=== PATIENT | female | born 1970 | race Two or more races ===

== ENCOUNTER 2019-02-12 00:43 | Inpatient (IN) | payer OTHER ==
[~2019-02-12] VITALS: Ht 165.1 cm; Wt 78.1 kg
--- OUTSIDE RECORDS SUMMARY | 2019-02-12 00:45 | XMS REPORT ---
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 Allergies, Adverse Reactions, Alerts Allergy Name Allergy Type Status Severity Reaction(s) Onset Date Inactive Date Treating Clinician Comments No Known Allergies DA Active U 2019-01-13 00:00:00 Medications This patient has no known medications. Results Test Description Test Time Test Comments Text Results Atomic Results Result Comments - XR KNEE 4 + V RT 2019-01-13 23:32:00 FAX: Nadiya Alonso NP [place]: St: REG Name: MARYJO DONAHUE [facility] : 1970 Age/S: 48/F [address] [facility] Unit #: [id number] Loc: [place] [address] Phys: Nadiya Alonso NP Acct: [id number] Dis Date: Status: REG ER PHONE #: [phone] Exam Date: 01/13/2019 2257 FAX #: [phone] Reason: fall, pain EXAMS: CPT CODE: [id number] XR KNEE 4 + V RT [id number] DICTATION LOCATION: H48 HISTORY: Female, 48 years of age with fall, pain EXAM: RIGHT KNEE, 3 VIEWS COMPARISON: None FINDINGS: No significant soft tissue swelling or joint effusion. Mild degenerative change seen in the patellofemoral joint and medial compartment. No acute fracture, dislocation, osteolytic or osteoblastic lesion. IMPRESSION: Mild degenerative change. No acute bony abnormalities. at 2332 Reported and signed by: Gem Chung MD CC: Nadiya Alonso NP Technologist: RT MARCY(R) Trnscrd Date/Time/By: 01/13/2019 (0754) : By: JayashreeCLW Orig Print D/T: S: 01/13/2019 (5385) PAGE 1 Signed Report - XR HIP W/PEL UNI 2+V RT 2019-01-13 23:31:00 FAX: Nadiya Alonso NP [place]: St: REG Name: MARYJO DONAHUE [facility] : 1970 Age/S: 48/F [address] [facility] Unit #: [id number] Loc: [place] [address] Phys: Nadiya Alonso NP Acct: [id number] Dis Date: Status: REG ER PHONE #: [phone] Exam Date: 01/13/2019 2250 FAX #: [phone] Reason: fall, pain EXAMS: CPT CODE: [id number] XR HIP W/PEL UNI 2+[place] [address] DICTATION LOCATION: H48 HISTORY: Female, 48 years of age with fall, pain EXAM: RIGHT HIP, 3 VIEWS COMPARISON: None FINDINGS: AP pelvis and 2 views of the right hip are provided. There is permeative lucency and mild adjacent soft tissue calcification in the greater trochanter of right proximal femur. No obvious fracture line or dislocation. No other osteolytic or osteoblastic lesions. Mild degenerative disease seen in both hips. IMPRESSION: 1. Permeative lucency and adjacent faint soft tissue calcification in the greater trochanter of right proximal femur. Findings suspicious for primary or metastatic neoplasm or osteomyelitis. Please correlate with clinical history. Consider further assessment with CT scan or MRI. 2. No acute fracture or dislocation. at 2331 Reported and signed by: Gem Chung MD CC: Nadiya Alonso NP Technologist: RT MARCY(R) Trnscrd Date/Time/By: 01/13/2019 (9525) : By: Torin Orig Print D/T: S: 01/13/2019 (1513) PAGE 1 Signed Report
[2019-02-12 01:39] LABS: BASOPHILS # (AUTO) 0.1 (0.0-0.1); BASOPHILS % 0.5 % (0.0-1.0); EOSINOPHILS # (AUTO) 0.1 (0.0-0.4); EOSINOPHILS % 1.2 % (0.0-6.0); HEMATOCRIT 38.4 % (34.2-44.1); HEMOGLOBIN 12.2 g/dL (12.0-16.0); LYMPHOCYTES # (AUTO) 2.6 (1.0-3.2); LYMPHOCYTES % 27.7 % (18.0-39.1); MEAN CORPUSCULAR HEMOGLOBIN 23.7 pg (28-32); MEAN CORPUSCULAR HGB CONC 31.8 g/dL (31-35); MEAN CORPUSCULAR VOLUME 74.7 fL (81-99); MONOCYTES # (AUTO) 0.8 (0.2-0.8); MONOCYTES % 8.4 % (4.4-11.3); NEUTROPHILS # (AUTO) 5.8 (2.1-6.9); NEUTROPHILS % 61.7 % (38.7-80.0); PLATELET COUNT 315 x10e3/uL (140-360); RED BLOOD COUNT 5.14 x10e6/uL (3.6-5.1); RED CELL DISTRIBUTION WIDTH 15.1 % (11.7-14.4)
[2019-02-12 01:43] LABS: PROTHROMBIN TIME 13.7 seconds (11.9-14.5)
[2019-02-12 01:44] LABS: PARTIAL THROMBOPLASTIN TIME 26.2 seconds (23.8-35.5)
[2019-02-12 01:52] LABS: ALANINE AMINOTRANSFERASE 11 IU/L (0-55); ALBUMIN 3.5 g/dL (3.5-5.0); ALBUMIN/GLOBULIN RATIO 0.9 (0.8-2.0); ALKALINE PHOSPHATASE 54 IU/L (40-150); BLOOD UREA NITROGEN 19 mg/dL (7-26); BUN/CREATININE RATIO 28 (6-25); CALCIUM 9.1 mg/dL (8.4-10.2); CARBON DIOXIDE 20 mmol/L (22-29); CREATININE, SERUM 0.68 mg/dL (0.57-1.11); EST GLOMERULAR FILTRATION RATE > 60 ML/MIN (60-); GLUCOSE 114 mg/dL (74-118)
[2019-02-12] MEDS ORDERED: MORPHINE SULFATE INJ 4 MG/ML INJ 1ML ONE (01:52)
[2019-02-12] MEDS ORDERED: MORPHINE SULFATE 2 MG/ML SYR 1ML ONE (01:53)
[2019-02-12] MEDS ORDERED: ONDANSETRON HCL INJ 2MG/ML 2ML 2 MG/ML VIAL ONE (01:53)
[2019-02-12] MEDS: ONDANSETRON HCL INJ 2MG/ML 2ML 2 MG/ML VIAL IV PRN ×5 (02:00→21:40)
[2019-02-12 02:06] LABS: CHLORIDE 108 mmol/L (98-107); POTASSIUM 4.1 mmol/L (3.5-5.1); SODIUM 139 mmol/L (136-145)
[2019-02-12 02:09] LABS: ANION GAP 15.1 mmol/L (8-16)
--- NOTE | 2019-02-12 03:31 | Diagnostic Imaging Report ---
CT Bony Pelvis Without Contrast, With Multiplanar Reconstructions. CPT CODE: [id number]. INDICATIONS: Fall, right hip pain TECHNIQUE: Contiguous 2.5 mm thickness axial images were obtained in helical fashion through the bony pelvis. From these, coronal and sagittal reconstructions were generated. Rationale for reconstructions: To better assess alignment, and assess for subtle findings of possible fracture. RADIATION DOSE: Total DLP: 381.6 mGy*cm Estimated effective dose: (DLP x 0.015 x size factor) mSv CTDIvol has been reviewed. It is below the limits set by the Radiation Protocol Committee (RPC). COMPARISON: None. Findings: Fracture proximal diaphysis with involvement of the greater trochanter. The femoral neck is intact. There is a lucency in the greater trochanter measuring approximately 3.5 x 3.8 x 4.2 cm. The cortical margins surrounding this region are somewhat irregular suggestive of an underlying mass. The right femoral head remains articulated with the acetabulum. There is a tiny bone island in the femoral head. The left hip is intact and normal in morphology. No lytic or blastic lesions. No diastases of the pubic symphysis or sacroiliac joints. The pubic rami are intact. There are mild degenerative changes of the lower lumbar spine. Visualized bowel and appendix are normal. The uterus is present and normal in morphology. No adnexal mass. No evidence of pelvic or inguinal lymphadenopathy. No evidence of intramuscular hematoma or subcutaneous inflammation. IMPRESSION: Fracture of the proximal right femur with lucent lesion in the greater trochanter concerning for pathologic fracture. The remainder of the pelvis and left hip are normal. Thank you for this referral. Signed by: Dr. Ernst Irby MD on 02/12/2019 3:28 AM
[2019-02-12] MEDS ORDERED: ATORVASTATIN CA20 MG PO (03:40)
[2019-02-12] MEDS ORDERED: MORPHINE SULFATE 5 MG/ML VIAL IV ONE (03:45)
--- NOTE | 2019-02-12 04:28 | Diagnostic Imaging Report ---
Hip complete Indication: ^fall Technique: AP and crosstable images of right hip obtained. Comparison: Pelvis CT 0210 hours Findings: Fracture of the proximal femoral diaphysis is redemonstrated extending into the intertrochanteric region. There is mild overlap and medial angulation of the distal fracture fragment. Lateral image demonstrates anterior displacement and possibly one shaft width. The adjacent pubic rami are intact. The femoral head is intact and remains articulated with the acetabulum. IMPRESSION: Fracture of the proximal right femur as described above. Signed by: Dr. Ernst Irby MD on 02/12/2019 4:24 AM
[2019-02-12] MEDS ORDERED: HYDROMORPHONE 1MG/1ML INJ IV STA (04:57)
[2019-02-12] MEDS ORDERED: HYDROMORPHONE 1MG/1ML INJ IV PRN (05:00)
[2019-02-12] MEDS ORDERED: HYDROMORPHONE 1MG/1ML INJ ONE (05:03)
[2019-02-12] MEDS: MORPHINE SULFATE 2 MG/ML SYR 1ML IV PRN ×2 (07:47→14:12)
[2019-02-12] MEDS ORDERED: GADOBENATE DIMEGLUMINE 0 ML IV ONE (11:07)
[2019-02-12] MEDS ORDERED: GADOBENATE DIMEGLUMINE 1 ML IV ONE (11:08)
--- NOTE | 2019-02-12 14:12 | Diagnostic Imaging Report ---
EXAM: CT Chest, Abdomen and Pelvis WITH intravenous contrast INDICATION: Concern for metastatic malignancy COMPARISON: None. TECHNIQUE: The chest, abdomen and pelvis were scanned utilizing a multidetector helical scanner from the thoracic inlet to the pubic symphysis after administration of IV contrast. Coronal and sagittal reformations were obtained. Routine protocol was performed. Scan was performed during portal venous phase. IV CONTRAST: 100mL of Isovue 370 ORAL CONTRAST: None RADIATION DOSE: Total DLP: 1098.2 mGy*cm Dose modulation, iterative reconstruction, and/or weight based adjustment of the mA/kV was utilized to reduce the radiation dose to as low as reasonably achievable. FINDINGS: LINES/ TUBES: None. LUNGS AND AIRWAYS: The central airways are patent. No focal consolidation. Bilateral lower lobe dependent subsegmental atelectasis. No suspicious pulmonary nodules. PLEURA: No pleural effusion. No pneumothorax. HEART AND MEDIASTINUM: The thyroid gland is normal. Multiple enhancing right and left supraclavicular lymph nodes, for example a 14 x 14 mm node on the right (series 2 image 6. Extensive right axillary and subpectoral lymphadenopathy, the largest of which measures 4.1 x 2.8 cm (series 2 image 19) no mediastinal lymphadenopathy. The heart is not enlarged. No pericardial effusion. Scattered atherosclerotic calcifications of the coronary arteries. This study is not tailored for evaluation for pulmonary embolism, however there is no large central pulmonary embolus. HEPATOBILIARY: Diffuse hepatic steatosis. No focal liver lesions. No biliary ductal dilation. Normal gallbladder. SPLEEN: No splenomegaly. PANCREAS: No focal masses or ductal dilatation. ADRENALS: No adrenal nodules. KIDNEYS/URETERS: No hydronephrosis, stones, or solid mass lesions. PELVIC ORGANS/BLADDER: Unremarkable. PERITONEUM / RETROPERITONEUM: No free air or fluid. VESSELS: Unremarkable. GI TRACT: Descending and sigmoid colonic diverticulosis. No CT evidence of diverticulitis. No abnormal bowel wall thickening. No bowel obstruction. Normal appendix. BONES AND SOFT TISSUES: Extensive soft tissue masses of the right breast, the most dominant component measuring approximately 4.9 x 3.5 cm in the lateral right breast. There is associated satellite masses throughout the breast and extensive overlying skin thickening. Approximately 6.7 x 2.6 cm destructive lytic lesion involving the left ninth lateral rib. Acute pathologic right proximal femur fracture as previously described on right hip radiograph and pelvic CT. The underlying lytic bone lesion measures proximally 4.8 x 3.6 cm. IMPRESSION: Extensive soft tissue masses involving the right breast with the most dominant component measuring 4.9 x 3.5 cm in the lateral right breast. Associated satellite nodules, overlying skin thickening, extensive right axillary and subpectoral lymphadenopathy and right supraclavicular lymphadenopathy. Destructive metastasis involving the left ninth lateral rib and lytic metastasis of the right proximal femur associated with the known acute pathologic fracture. Findings are consistent with widely metastatic breast cancer. Diffuse hepatic steatosis. RECOMMENDATIONS: Breast imaging workup with baseline mammographic and sonographic evaluation. Signed by: Goldie Freeman MD on 02/12/2019 2:08 PM
[2019-02-12] MEDS ORDERED: ACETAMINOPHEN 325 MG TAB PO PRN (15:00)
[2019-02-12] MEDS ORDERED: HYDROMORPHONE 2MG/ML 2 MG/ML ML IV ONE (15:15)
--- NOTE | 2019-02-12 16:23 | Consultation ---
DATE OF CONSULTATION: Consultation to Trey Bullard M.D. HISTORY OF PRESENT ILLNESS: Ms. Bowens is a 48-year-old [place] female from [facility] came with right hip fracture, subsequently referred to me for further evaluation and treatment. The patient is a very poor historian. The patient claims that she had pain in the right lower extremity. Subsequently, a CAT scan has shown a 3.5 x 3.8 x 4.2 cm lucency in the greater trochanter. The patient also has a fracture involving the proximal diaphysis with involvement of the greater trochanter, subsequently referred to me for further evaluation and treatment. SOCIAL HISTORY: Noncontributory. FAMILY HISTORY: Noncontributory. ALLERGIES: REPORTED NONE. MEDICATIONS: At this time: 1. Hydromorphone. 2. Morphine. 3. Ondansetron. REVIEW OF SYSTEMS: HEENT: Normal. CARDIAC: Normal. RESPIRATORY: Normal. GI: Normal. : Normal. MUSCULOSKELETAL: fracture of the right femur. PHYSICAL EXAMINATION: GENERAL: A rather obese female, bed confined. No palpable adenopathy. HEART: Within normal limits. LUNGS: Clear. Right breast mass about 10 cm. The patient has inversion of the right breast nipple. Left breast does not reveal any masses. ABDOMEN: Obese. RECTAL/VAGINAL: Could not be done. CENTRAL NERVOUS SYSTEM: Could not be done. EXTREMITIES: The patient does have excruciating pain of the right lower extremity. LABORATORY DATA: CBC shows hemoglobin of 12.2, hematocrit 38.4, white count of 9340, platelets of 315,000. Chemistry shows a sodium of 139, potassium 4.1, chloride is 108, CO2 of 20, BUN 19, creatinine 0.68, glucose 114, calcium 9.1, bilirubin 0.4, SGOT 24, SGPT 11, alkaline phosphatase 54, total protein 7.2, albumin 3.5, globulin is 3.7. Chest x-ray has not been done. IMPRESSION: 1. Right femur metastases. 2. Right breast cancer. 3. Morbid obesity. PLAN, COMMENTS, AND SUGGESTIONS: Suggest a right breast biopsy. Cancel the biopsy of the right femur. CT of the chest. The patient will also have an MRI of the brain, total body bone scan, CEA, and orthopedic surgery. This is an incurable far advanced cancer. This was discussed at length with the patient and the daughter. The patient was also suggested a second opinion as she kept telling am I going to , am I going to . Franck Chen MD MAQ/MODL /[id number] cc: Trey Bullard MD
[2019-02-12] MEDS ORDERED: IOPAMIDOL 370 MG/ML 200 ML INFUS..BTL INJ ONE (16:50)
[2019-02-12] MEDS ORDERED: SODIUM CHLORIDE 0.9% 50ML 50 ML ONE (16:50)
--- NOTE | 2019-02-12 19:45 | History and Physical ---
HISTORY OF PRESENT ILLNESS: The patient is a 48-year-old [place] female, past medical history is negative for any significant medical condition. The patient came because she fell at home and she was having pain on the right hip. She was found to have a right proximal femur fracture. She was found to have metastatic lesions in the pelvic bones. She was found to have also right breast cancer. Apparently, she had to be followed time under to look for any medical evaluation. The patient came to the hospital. REVIEW OF SYSTEMS: CARDIOVASCULAR: No chest pain or palpitation. RESPIRATORY: No shortness of breath. No cough. GASTROINTESTINAL: No nausea or vomiting. No diarrhea. GENITOURINARY: No urinary frequency. MUSCULOSKELETAL: Right hip pain after the fall. ALLERGIES: NOT ALLERGIC TO ANYTHING. SOCIAL HISTORY: She does not smoke. She does not drink. PAST MEDICAL HISTORY: According to her is negative for any significant medical conditions. PHYSICAL EXAMINATION: VITAL SIGNS: Temperature 98.3, heart rate 101 per minute, respiratory rate 16 per minute, blood pressure is 141/81, and oxygen 96%. LABORATORY STUDIES: On the blood work, we have a CBC; white blood count 9.34, hemoglobin 12.22, hematocrit 38.4, platelet count 315,000. On the BMP; sodium 139, potassium 4.1, chloride 108, CO2 of 20, BUN 19, creatinine 0.68, GFR of 60, glucose 114, calcium 9.1, bilirubin 0.4, AST 24, ALT 11, total alkaline phosphatase 54, total protein 7.2, albumin 3.5. test is negative on the coagulation. PT 13.7, INR 1.00, PTT 26.2. Immunology status grew IgG, IgA and I g, is pending. Imaging, we have a pelvis CT, which showed that the patient has fracture on the proximal right femur with leucine lesion in the greater trochanter consent concerning for pathological fracture. Remaining pelvis and hip are normal. Then, we have a hip x-ray, which showed fracture of the proximal right femur. Then, we have a CT of the abdomen and pelvis, which showed extensive soft tissue masses involving the right breast with the most dominant component measuring 4.9 x 3.5 cm in the lateral right breast, associated satellite nodules of allied skin thickening. Extensive right axillary and subpectoral lymphadenopathy and right supraclavicular lymphadenopathy. Destructive status involving the left 9th lateral rib lytic metastasis on the proximal femur associated with the known acute pathologic fracture. Findings are consistent with widely metastatic breast cancer and diffuse hepatic steatosis. Recommendation, breast imaging workup with mammogram and sonographic evaluation recommended. IMPRESSION: 1. Right hip fracture, which is hepatologic right hip fracture. 2. Right breast cancer with metastatic lesion. 3. Obesity. PLAN OF TREATMENT: Dr. Vizcaino has been consulted from the surgical point of view for biopsy. Dr. Chen has been consulted for the Oncology point of view because of breast cancer and then, Dr. Pires has been consulted from the Orthopedic consult point of view for the fracture. The patient will continue with Dilaudid 1 mg IV q.6 hours as needed for severe pain, morphine 4 mg IV q.4 hours as needed, Zofran 4 mg IV q.4 hours as needed for nausea and vomiting. We are going to give also Tylenol p.o. 325 mg as needed for q.4 hours as needed for pain or fever. The case has been discussed with at the bedside and Dr. Chen, Hematology also. MD CONNIE Trivedi/MIRANDA /[id number]
[2019-02-12] MEDS: MORPHINE SULFATE INJ 4 MG/ML INJ 1ML IV PRN (21:40)
--- NOTE | 2019-02-12 21:40 | NUR ---
ORTHOPEDIC CONSULTATION Patient is seen & examined with son at bedside. Patient is a 48 year old community ambulator without assistive device who presents to the ED with right hip pain and an inability to ambulate. No numbness, paresthesias or loss of dis sherice motor function. Pain localized to right hip. Denies pain in any other extremity. Patient was told weeks ago to get a right hip CT to evaluate a hip lesion however she was afraid and did not get imaging. PMdHx: Denies Allergies: NKDA Medications: None FamHx: Non-contributory SocHx: Denies Tob, EtOH, DrugsG. ROS: as per HPI AVSS AAO x 3, NAD Right Lower Leg Shortened, Flexed, Externally rotated Motor: + EHL, FHL, TA, G/S Sensation grossly intact Pulses +DP, Post tib Compartments soft Negative calf tenderness CT Chest Abdomen Pelvis IMPRESSION: Extensive soft tissue masses involving the right breast with the most dominant component measuring 4.9 x 3.5 cm in the lateral right breast. Associated satellite nodules, overlying skin thickening, extensive right axillary and subpectoral lymphadenopathy and right supraclavicular lymphadenopathy. Destructive metastasis involving the left ninth lateral rib and lytic metastasis of the right proximal femur associated with the known acute pathologic fracture. Findings are consistent with widely metastatic breast cancer. Diffuse hepatic steatosis. Assessment: 48 year old F with pathologic right intertrochanteric hip fracture Recommend Bone Scan to evaluate for potential other sites of tumor involvement Analgesics DVT Prophylaxis Bedrest Will plan on Right Hip Intramedullary Nailing once work up is completed Will require post op radiation Oncologic treatment as per Heme/Onc Discussed case with patient and son. DO MICKY [facility]
[2019-02-12 22:14] VITALS: BP 130/91
[2019-02-12 22:23] VITALS: BP 135/87
[2019-02-12 22:37] VITALS: BP 135/87
[2019-02-13] VITALS (7 sets, daily range): BP systolic 106–145; BP diastolic 66–92
[2019-02-13] MEDS: HYDROCODONE/APAP 10MG-325MG TAB PO PRN ×2 (00:56→16:57)
[2019-02-13] MEDS: MORPHINE SULFATE INJ 4 MG/ML INJ 1ML IV PRN ×2 (03:17→08:23)
[2019-02-13] MEDS: ONDANSETRON HCL INJ 2MG/ML 2ML 2 MG/ML VIAL IV PRN ×5 (03:18→23:52)
--- NOTE | 2019-02-13 07:09 | NUR ---
pt asleep resp even and unlabored at this time no distress noted, pt easily aroused to name , pt has family member at bedside, call light in reach will cont to monitor.
[2019-02-13] MEDS ORDERED: LIDOCAINE HCL 1% LOCAL INJ 20 ML VIAL ONE (12:11)
--- NOTE | 2019-02-13 13:00 | NUR ---
pt off unit.
[2019-02-13] MEDS ORDERED: MIDAZOLAM HCL 2 MG/2 ML VIAL ONE (14:38)
[2019-02-13] MEDS ORDERED: FENTANYL CITRATE/PF 100MCG/2 ML INJ ONE (14:38)
--- NOTE | 2019-02-13 14:42 | NUR ---
pt returned to floor. awake resp even and unlabored, no distress noted.
[2019-02-13] MEDS ORDERED: ROCURONIUM BROMIDE 10 MG/ML 5ML VIAL ONE (14:45)
[2019-02-13] MEDS ORDERED: SEVOFLURANE INHAL SOLN 250 ML PEN BTL ONE (14:45)
[2019-02-13] MEDS ORDERED: ONDANSETRON HCL INJ 2MG/ML 2ML 2 MG/ML VIAL ONE (14:45)
[2019-02-13] MEDS ORDERED: DEXAMETHASONE SOD PHOS INJ 4 MG/ML VIAL ONE (14:45)
[2019-02-13] MEDS ORDERED: PROPOFOL IV EMULSION 10 MG/ML 20 ML VIAL ONE (14:45)
[2019-02-13] MEDS ORDERED: LIDOCAINE HCL 2% LOCAL INJ 5 ML SDV VIAL INJ ONE (14:45)
[2019-02-13] MEDS: HYDROMORPHONE 2MG/ML 2 MG/ML ML IV PRN ×3 (15:29→23:52)
--- NOTE | 2019-02-13 16:15 | Progress Note ---
DATE: Internal Medicine Progress Note SUBJECTIVE: The patient is complaining of right hip pain. PHYSICAL EXAMINATION: HEART: Showed regular rhythm. Normal S1 and S2 sound. LUNGS: Clear bilaterally. VITAL SIGNS: Blood pressure 120/87, temperature 97.2, heart rate is 100 per minute, respiratory rate 18 per minute, and oxygen saturation 98%. LABORATORY DATA: On the BMP; sodium 139, potassium 4.1, chloride 108, CO2 20, BUN 19, creatinine 0.66, and glucose 114. On the CBC; white blood count 9.34, hemoglobin 12.2, hematocrit 38.4, and platelet count 315,000. PT 13.7, INR is 1.00, and PTT 26.2. AST 24, ALT 11, total bilirubin 0.4, and alkaline phosphatase 54. FINAL IMPRESSION: 1. Right breast cancer with metastatic lesions. 2. Pathology right hip fracture. PLAN OF TREATMENT: Continue pain control with Dilaudid 2 mg IV every 3 hours as needed, Armbrust 1 tablet q.4 hours as needed, and Zofran 4 mg IV q.4 hours as needed. Biopsy was done of the breast mass, waiting for the report of course. Dr. Chen of Oncology is on the case. Dr. Dolly Pires for Orthopedic Surgery is on the case. Case discussed with the family. MD CONNIE Trivedi/MIRANDA /[id number]
--- NOTE | 2019-02-13 17:55 | NUR ---
pt off unit for MRI. family member at bedside.
--- NOTE | 2019-02-13 19:00 | NUR ---
RECEIVED PATIENT IN BEDSIDE SHIFT REPORT. PATIENT RESTING IN BED AT THIS TIME. STATES PAIN IS 10/10. WILL ADMINISTER PAIN MEDICATION WHEN SCHEDULED. NO OTHER S&S OF DISTRESS NOTED. FAMILY MEMBER AT BEDSIDE. BED LOCKED IN LOWEST POSITION, SIDE RAILS UPX2, CALL LIGHT IN REACH.
--- NOTE | 2019-02-13 19:25 | NUR ---
Report given to oncoming nurse pt stable.
--- NOTE | 2019-02-13 20:11 | Diagnostic Imaging Report ---
Bone Scan, delayed phase INDICATION: 48 F with history of breast cancer. Sustained a right hip fracture from a fall 3 weeks ago. Fell again last night; now severe left leg pain. Based on CT of 02/12/2019, right hip fracture is pathologic with underlying lytic process. COMPARISON: CT CAP 02/12/2019; right hip radiograph 02/12/2019 REPORT: Approximately 3.5 hours following intravenous administration of 27.5 mCi of Tc-99m MDP, delayed total body images in the anterior and posterior projections and selected spot images were obtained. Focal markedly increased tracer is seen along the left 9th rib anterolaterally. Focal, mildly increased tracer activity is seen in T6 and T10. Focal increased tracer activity is seen in the right intertrochanteric femur. The patient was unable to adequately void prior to imaging; the full bladder obscures the sacrum and the superior pubic rami. Otherwise, distribution of tracer activity is unremarkable throughout the skeletal system. No abnormal accumulation of tracer is seen in the soft tissues. IMPRESSION: 1. Acute osteoblastic process in the intertrochanteric right femur is consistent with known fracture. 2. The two small osteoblastic processes in T6 and T10 are worrisome for bone metastases. There are no correlates on today's CT, including no degenerative changes. Lesions are worrisome for bone metastases. 3. Acute osteoblastic process in the left 9th rib anterolaterally consistent with destructive bone metastasis seen on today's CT. Signed by: Dr. Brittany Mckeon M.D. on 02/13/2019 8:08 PM
--- NOTE | 2019-02-13 21:10 | NUR ---
PATIENT AND FAMILY MEMBERS REPORT MD MARK TOLD THEM SHE WOULD HAVE SURGERY TOMORROW. NO ORDERS ENTERED. SPOKE WITH MD MARK NURSE AND SHE REPORTED HE WOULD PUT THE ORDERS IN. TOLD PATIENT WE ARE WAITING ON ORDERS, BUT TO BE NPO PAST MIDNIGHT TO BE PREPARED. PATIENT VERBALIZED UNDERSTANDING.
--- NOTE | 2019-02-13 22:52 | NUR ---
ORTHOPEDIC PROGRESS NOTE Patient seen & examined resting comfortably at bedside with daughter. Unable to ambulate due to pain. No numbness, paresthesias or loss of distal motor function. VS T 98.2, HR 70, RR 18, BP 125/77 O2 96% Right lower leg Shortened, Flexed, Externally rotated Motor: + EH, FHL, TA, G/S Sensation grossly intact Pulses+ DP, Post tib Compartments soft Negative calf tenderness Bone Scan 1. Acute osteoblastic process in the intertrochanteric right femur is consistent with known fracture. 2. The two small osteoblastic processes in T6 and T10 are worrisome for bone metastases. There are no correlates on today's CT, including no degenerative changes. Lesions are worrisome for bone metastases. 3. Acute osteoblastic process in the left 9th rib anterolaterally consistent with destructive bone metastasis seen on today's CT. 48 year old F with metastatic breast cancer on T6 and T10, left 9th rib, and pathologic right intertrochanteric hip fracture Plan for right hip IMN tomorrow am Follow up labs, EKG, and consent Analgesics PRN DVT Prophylaxis NPO except meds Hold anticoagulation after midnight IVF while NPO Plan for medical management of T6 & T10 and Rib lesions Will require post op radiation of right femur as per Heme Onc DO MICKY [facility]
[2019-02-14] VITALS (7 sets, daily range): BP systolic 116–149; BP diastolic 71–99
[2019-02-14] LABS: BASOPHILS % 0.2 % (0.0-1.0); HEMATOCRIT 41.7 % (34.2-44.1); HEMOGLOBIN 12.7 g/dL (12.0-16.0); LYMPHOCYTES # (AUTO) 1.3 (1.0-3.2); LYMPHOCYTES % 10.9 % (18.0-39.1); MEAN CORPUSCULAR HEMOGLOBIN 23.5 pg (28-32); MEAN CORPUSCULAR HGB CONC 30.5 g/dL (31-35); MEAN CORPUSCULAR VOLUME 77.2 fL (81-99); MONOCYTES # (AUTO) 0.9 (0.2-0.8); NEUTROPHILS # (AUTO) 9.8 (2.1-6.9); NEUTROPHILS % 81.4 % (38.7-80.0); PLATELET COUNT 304 x10e3/uL (140-360); RED CELL DISTRIBUTION WIDTH 15.4 % (11.7-14.4)
[2019-02-14 00:10] LABS: INR 1.03
[2019-02-14 00:11] LABS: PARTIAL THROMBOPLASTIN TIME 33.8 seconds (23.8-35.5)
[2019-02-14 00:21] LABS: ALANINE AMINOTRANSFERASE 11 IU/L (0-55); ALBUMIN 3.2 g/dL (3.5-5.0); ALBUMIN/GLOBULIN RATIO 0.7 (0.8-2.0); ALKALINE PHOSPHATASE 65 IU/L (40-150); ANION GAP 14.9 mmol/L (8-16); BLOOD UREA NITROGEN 20 mg/dL (7-26); BUN/CREATININE RATIO 32 (6-25); CARBON DIOXIDE 26 mmol/L (22-29); CHLORIDE 101 mmol/L (98-107); CREATININE, SERUM 0.62 mg/dL (0.57-1.11); EST GLOMERULAR FILTRATION RATE > 60 ML/MIN (60-); GLUCOSE 146 mg/dL (74-118); POTASSIUM 3.9 mmol/L (3.5-5.1); SODIUM 138 mmol/L (136-145)
--- NOTE | 2019-02-14 00:55 | NUR ---
PATIENT RECEIVED BEDBATH, USED HIBICLENS SOAP. PATIENT CRYING OUT IN PAIN WITH ANY MOVEMENT OF HIP. PATIENT CLEAN, DRY, NEW PUREWICK APPLIED, WITH NEW CANISTER AND TUBING. WILL COLLECT URINE SPECIMEN WHEN PATIENT VOIDS NEXT. BED LOCKED IN LOWEST POSITION, SIDE RAILS UPX2, CALL LIGHT IN REACH.
[2019-02-14] MEDS: HYDROCODONE/APAP 10MG-325MG TAB PO PRN ×2 (01:06→14:20)
[2019-02-14] MEDS: ONDANSETRON HCL INJ 2MG/ML 2ML 2 MG/ML VIAL IV PRN ×2 (04:06→20:43)
[2019-02-14] MEDS: HYDROMORPHONE 2MG/ML 2 MG/ML ML IV PRN ×4 (04:06→20:42)
[2019-02-14] MEDS ORDERED: BACITRACIN 50,000 UNIT VIAL ONE (06:32)
--- NOTE | 2019-02-14 06:34 | NUR ---
PATIENT OFF UNIT FOR R HIP PINNING.
--- NOTE | 2019-02-14 07:20 | NUR ---
RECEIVED REPORT FROM MIXED CROP AND LIVESTOCK FARMER RN. PATIENT OFF FLOOR IN OR AT THIS TIME.
--- NOTE | 2019-02-14 08:31 | Diagnostic Imaging Report ---
EXAMINATION: MRI of the brain with and without contrast HISTORY: Several falls, history of breast cancer, evaluate for brain metastases COMPARISON: None available TECHNIQUE: Pre-contrast: Sagittal T2; axial T1-IR, T2, MPGR, DWI, FLAIR; Post-contrast: axial and coronal T1. Intravenous contrast: 20 mL of MultiHance. IMAGE QUALITY: Adequate. FINDINGS: Parenchyma: 1. There are 3 heterogeneous signal intensity and strongly enhancing peripheral masses, the largest one in the right superior parasagittal precentral gyrus/posterior superior frontal gyrus, measures about 2.7 x 2.4 cm maximum transverse diameters, the second lesion is located in the lateral superior medial frontal gyrus and measures about 1.9 x 1.5 cm, the third lesion is located in the left caudal thalamic groove and measures about 1.2 x 1.2 cm transverse diameters. All the lesions represents prominent surrounding vasogenic edema and mild local mass effect, no definite midline shift or herniation at this time. 2. No hemorrhage, acute or chronic vascular insult. Skull: No abnormal signal intensity or enhancement. Major arteries: Expected flow voids present. Dural sinuses: Expected flow voids present. Ventricles: No hydrocephalus or displacement. Nonspecific mild prominence of the right temporal bone compared to the left, which may represent a variation of anatomy for this patient versus be related to right mesial temporal volume loss. Subarachnoid spaces: No abnormal signal intensity or enhancement. Brain volume: Normal for age. Foramen magnum: No mass, Chiari malformation, or basilar invagination. Sella: No gross mass. Paranasal/mastoid sinuses: Unremarkable. IMPRESSION: There are 3 supratentorial enhancing masses worrisome for metastatic disease with prominent surrounding edema and mild local mass effect. The findings were reported to the attending physician's nurse Malathi Cuevas on 02/14/2019 at 8:25 AM Signed by: Dr. Silvia Watters M.D. on 02/14/2019 8:28 AM
[2019-02-14] MEDS ORDERED: BUPIVACAINE HCL 0.5% INJ 30 ML VIAL INJ ONE (08:52)
[2019-02-14] MEDS ORDERED: HYDROMORPHONE 1MG/1ML INJ ONE (10:42)
--- NOTE | 2019-02-14 10:45 | NUR ---
RECEIVED REPORT FROM RECOVERY. WAITING FOR PATIENT TO ARRIVE TO FLOOR.
--- NOTE | 2019-02-14 10:53 | NUR ---
PATIENT A/O X3, EVEN RESPIRATIONS ON 2LNC. RIGHT HIP/THIGH DRESSING CLEAN, DRY, AND INTACT. IV SITE TO RIGHT AC AND LEFT HAND INTACT AND PATENT. PATIENT TO RESUME REGULAR DIET. PRN PAIN MEDICATION. FAMILY AT BEDSIDE, CALL LIGHT IN REACH WILL CONTINUE TO MONITOR PATIENT.
--- NOTE | 2019-02-14 11:45 | NUR ---
SPOKE WITH DR. VEGA REGARDING IR CONSULT.
--- NOTE | 2019-02-14 12:00 | NUR ---
PAGED DR. DAUGHERTY REGARDING IR CONSULT.
--- NOTE | 2019-02-14 14:17 | Progress Note ---
DATE: Internal Medicine Progress Note SUBJECTIVE: The patient had a right hip fracture repair. MRI of the head showed brain metastasis. She has stage IV breast cancer, very poor prognosis. Dr. Chen is on the case from Oncology. We are waiting for biopsy of the breast. PHYSICAL EXAMINATION: HEART: Showed regular rhythm. Normal S1, S2 sound. LUNGS: Clear bilaterally. ABDOMEN: Soft. EXTREMITIES: Showed dressing on the incision from the right hip surgery. LABORATORY DATA: On the BMP; sodium 138, potassium 3.9, chloride 101, CO2 of 26, BUN 20, creatinine 0.62, glucose 146. On the CBC; white count 12.0, hemoglobin 12.7, hematocrit 41.7, platelet count 304,000, PT 14.0, INR 1.03, PTT 33.8. AST 12, ALT 11, total bilirubin 0.8, alkaline phosphatase 65. FINAL IMPRESSION: Right breast cancer with metastatic lesions in the bones including the hip where she has a pathologic fracture, metastasis to the brain and lymph nodes on the right side. PLAN OF TREATMENT: Pain control with Dilaudid 2 mg IV q.4 hours, [place] 1 tablet q.4 hours as needed, Tylenol 325 mg q.4 hours as needed for mild pain, Zofran 4 mg q.4 hours as needed. The patient's prognosis is very poor. She might probably be hospice candidate at this point in time. The patient has metastatic lesions in the bones, in the axillary area and also in the brain area. Dr. Chen, Hematology/Oncology on the case, he will decide whether or not the patient is a candidate for any type of radiation or chemotherapy. MD CONNIE Trivedi/MIRANDA /[id number]
[2019-02-14] MEDS: CEFAZOLIN SOD 1 GM/NS 50ML 50 ML IV SCH ×2 (14:19→20:42)
[2019-02-14 14:43] LABS: BASOPHILS % 0.2 % (0.0-1.0); HEMATOCRIT 38.5 % (34.2-44.1); LYMPHOCYTES # (AUTO) 1.3 (1.0-3.2); LYMPHOCYTES % 7.6 % (18.0-39.1); MEAN CORPUSCULAR HEMOGLOBIN 24.1 pg (28-32); MEAN CORPUSCULAR HGB CONC 31.2 g/dL (31-35); MEAN CORPUSCULAR VOLUME 77.5 fL (81-99); MONOCYTES % 5.9 % (4.4-11.3); NEUTROPHILS # (AUTO) 14.4 (2.1-6.9); NEUTROPHILS % 85.5 % (38.7-80.0); PLATELET COUNT 327 x10e3/uL (140-360); RED BLOOD COUNT 4.97 x10e6/uL (3.6-5.1); RED CELL DISTRIBUTION WIDTH 15.2 % (11.7-14.4)
[2019-02-14] MEDS ORDERED: MIDAZOLAM HCL 2 MG/2 ML VIAL ONE (14:56)
[2019-02-14] MEDS ORDERED: FENTANYL CITRATE/PF 100MCG/2 ML INJ ONE (14:56)
[2019-02-14] MEDS ORDERED: ONDANSETRON HCL INJ 2MG/ML 2ML 2 MG/ML VIAL ONE (15:09)
[2019-02-14] MEDS ORDERED: DEXAMETHASONE SOD PHOS INJ 4 MG/ML VIAL ONE (15:09)
[2019-02-14] MEDS ORDERED: LIDOCAINE HCL 2% LOCAL INJ 5 ML SDV VIAL INJ ONE (15:09)
[2019-02-14] MEDS ORDERED: PROPOFOL IV EMULSION 10 MG/ML 20 ML VIAL ONE (15:09)
[2019-02-14] MEDS ORDERED: SEVOFLURANE INHAL SOLN 250 ML PEN BTL ONE (15:09)
--- NOTE | 2019-02-14 15:15 | NUR ---
CHIQUIS HYMAN FORMERLY [facility] CALLED [phone] STATES IN [facility] IS [facility] OR [facility] AND [facility].
[2019-02-14 16:10] LABS: ANION GAP 18.1 mmol/L (8-16); BLOOD UREA NITROGEN 25 mg/dL (7-26); BUN/CREATININE RATIO 32 (6-25); CALCIUM 9.6 mg/dL (8.4-10.2); CARBON DIOXIDE 24 mmol/L (22-29); CHLORIDE 100 mmol/L (98-107); CREATININE, SERUM 0.77 mg/dL (0.57-1.11); EST GLOMERULAR FILTRATION RATE > 60 ML/MIN (60-); GLUCOSE 166 mg/dL (74-118); POTASSIUM 4.1 mmol/L (3.5-5.1); SODIUM 138 mmol/L (136-145)
[2019-02-14] MEDS: ENOXAPARIN SOD INJ 40 MG/0.4 ML SYR SC SCH (16:53)
--- NOTE | 2019-02-14 17:15 | NUR ---
PATIENT HAS VOIDED SINCE SURGERY. SUGGESTED TO PATIENT THAT CHUNG MAY BE MORE COMFORTABLE WITH URINATING INSTEAD OF HAVING TO TURN PATIENT CONSTANTLY TO CLEAN. RECEIVED ORDER FOR CHUNG, PATIENT REFUSED CHUNG AND INSISTED PUREWICK BE USED. DISCONTINUED CHUNG ORDER AND PLACED PUREWICK.
[2019-02-14] MEDS: FENTANYL 50 MCG/HR PATCH TOP SCH (18:12)
--- NOTE | 2019-02-14 18:45 | NUR ---
Received bedside report from day RN. The patient is sitting up on the bed, not in distress. The patient reported her pain at 7/10. Family members at bedside. Call light within reach, bed height low, side rails up x2 and wheels lock.
[2019-02-15] VITALS (8 sets, daily range): BP systolic 119–138; BP diastolic 71–89
[2019-02-15] MEDS: ONDANSETRON HCL INJ 2MG/ML 2ML 2 MG/ML VIAL IV PRN (02:01)
[2019-02-15] MEDS: HYDROMORPHONE 2MG/ML 2 MG/ML ML IV PRN ×7 (02:01→21:21)
[2019-02-15] MEDS: CEFAZOLIN SOD 1 GM/NS 50ML 50 ML IV SCH (04:49)
--- NOTE | 2019-02-15 05:54 | NUR ---
INSTRUCTOR DECORATING reported to the RN the patient does not want to be check if clean or soiled diaper except stating she is doing fine. The patient did not want to turn over or change position.
[2019-02-15 06:47] LABS: BASOPHILS # (AUTO) 0.1 (0.0-0.1); BASOPHILS % 0.4 % (0.0-1.0); EOSINOPHILS % 0.4 % (0.0-6.0); HEMATOCRIT 36.6 % (34.2-44.1); HEMOGLOBIN 10.9 g/dL (12.0-16.0); LYMPHOCYTES # (AUTO) 2.3 (1.0-3.2); LYMPHOCYTES % 20.9 % (18.0-39.1); MEAN CORPUSCULAR HEMOGLOBIN 23.3 pg (28-32); MEAN CORPUSCULAR HGB CONC 29.8 g/dL (31-35); MEAN CORPUSCULAR VOLUME 78.4 fL (81-99); MONOCYTES # (AUTO) 1.3 (0.2-0.8); MONOCYTES % 11.5 % (4.4-11.3); NEUTROPHILS # (AUTO) 7.5 (2.1-6.9); NEUTROPHILS % 66.4 % (38.7-80.0); PLATELET COUNT 304 x10e3/uL (140-360); RED BLOOD COUNT 4.67 x10e6/uL (3.6-5.1); RED CELL DISTRIBUTION WIDTH 15.5 % (11.7-14.4)
--- NOTE | 2019-02-15 07:07 | NUR ---
RECEIVED PATIENT RESTING IN BED NO S/S OF DISTRESS. BED LOW, WHEELS LOCKED, SIDE RAILS X2. FAMILY AT BEDSIDE. CALL LIGHT IN REACH WILL CONTINUE TO MONITOR PATIENT.
[2019-02-15] MEDS: HYDROCODONE/APAP 10MG-325MG TAB PO PRN ×2 (09:42→23:09)
--- NOTE | 2019-02-15 10:00 | NUR ---
RIGHT AC IV LEAKING. REMOVED RIGHT AC, CATHETER TIP INTACT AND PRESSURE DRESSING APPLIED. UNSUCCESSFUL ATTEMPT TO LEFT WRIST 20 GAUGE. IV REMOVED AND PRESSURE DRESSING APPLIED. NEW IV TO RIGHT WRIST [address].
[2019-02-15] MEDS ORDERED: LACTULOSE SYRUP 20 GM/30 ML UDC PO PRN (10:30)
--- NOTE | 2019-02-15 11:15 | Progress Note ---
DATE: Internal Medicine Progress Note SUBJECTIVE: The patient was diagnosed with stage IV breast cancer metastatic to the brain, very poor prognosis. I talked with Dr. Chen, oncologist. The patient will decide between treatment or hospice at this point in time. I talked with the son and the patient also answered the questions. PHYSICAL EXAMINATION: VITAL SIGNS: Blood pressure 130/88, temperature 99.2, heart rate 114 per minute, respiratory rate 18 per minute, and oxygen saturation 92%. HEART: Showed regular rhythm. Normal S1, S2 sound. LUNGS: Clear bilaterally. ABDOMEN: Soft. LABORATORY DATA: BMP; sodium 138, potassium 4.1, chloride 100, CO2 24, BUN 25, creatinine 0.77, glucose 166. On CBC, white count 11,200, hemoglobin 10.9, hematocrit 36.6, platelet count 304,000. PT 14.0, PTT 33.8, INR 1.03, AST 12, ALT 11, total bilirubin 0.8, alkaline phosphatase 65. FINAL IMPRESSION: 1. Right breast cancer with widespread metastases to the bones and to the brain. 2. Right hip fracture secondary to metastatic lesions. 3. Obesity. PLAN OF TREATMENT: At this point in time is pain control with Dilaudid 2 mg IV q.3 hours as needed, fentanyl patch 50 mcg q.72 hours, [place] 1 tablet q.4 hours as needed, Lovenox 40 mg subcutaneous daily for DVT prophylaxis, Zofran 4 mg IV q.4 hours as needed, Tylenol 325 mg q.4 hours as needed. As I said, Dr. Franck Chen will decide about the treatment right now. According to his opinion, she has a very poor prognosis, hospice would be one reasonable alternative. He is going to also talk with the family to see if they want to go through the radiation therapy, but prognosis is extremely poor. I already talked with the patient and son at the bedside, they are aware of the very poor prognosis unfortunately. MD CONNIE Trivedi/MIRANDA /[id number]
--- NOTE | 2019-02-15 11:59 | NUR ---
ORTHOPEDICS PROGRESS NOTES Patient seen & examined, pain well controlled with analgesics VS 99.2 HR 114 RR 18 BP 130/88 O2 92% Right Hip - Dressing clean, dry and intact Motor: +EHL, FHL, TA, G/S SILT Pulses + DP, Post tib Compartments soft No calf tenderness H/H 10.9/36.6 48 yo F s/p Right Hip IMN POD #1 Analgesics DVT Prophylaxis PT - WBAT F/U am labs Post operative radiation as per Heme/Onc DO [facility]
[2019-02-15] MEDS: LUBIPROSTONE 24 MCG CAP PO SCH (16:30)
[2019-02-15] MEDS: ENOXAPARIN SOD INJ 40 MG/0.4 ML SYR SC SCH (16:41)
--- NOTE | 2019-02-15 19:10 | NUR ---
received patient resting in bed. resp even and unlabored. aaox3. no needs voiced at this time. bed locked and in lowest position, call light within easy reach. will continue to monitor.
[2019-02-16] VITALS (8 sets, daily range): BP systolic 121–142; BP diastolic 67–84
[2019-02-16] MEDS: HYDROMORPHONE 2MG/ML 2 MG/ML ML IV PRN ×7 (02:10→23:56)
[2019-02-16 06:34] LABS: HEMATOCRIT 36.2 % (34.2-44.1)
--- NOTE | 2019-02-16 06:56 | NUR ---
received report from lpn private duty RN, pt resting in bed, no distress noted, call light within reach, respirations even and nonlabored, will continue to monitor
[2019-02-16] MEDS: HYDROCODONE/APAP 10MG-325MG TAB PO PRN ×2 (06:59→16:25)
[2019-02-16 08:04] LABS: BILIRUBIN,URINE NEGATIVE (NEGATIVE); CLARITY,URINE CLEAR (CLEAR); COLOR,URINE YELLOW (YELLOW); KETONES,URINE NEGATIVE (NEGATIVE); LEUKOCYTE ESTERASE ,URINE NEGATIVE (NEGATIVE); NITRITE,URINE NEGATIVE (NEGATIVE); PROTEIN,URINE DIPSTICK TRACE (NEGATIVE); URINE UROBILINOGEN 0.2 mg/dL (0.2 - 1)
[2019-02-16 08:21] LABS: BACTERIA,URINE RARE /HPF; RBC,URINE 0-5 /HPF (0-5); WBC,URINE (MAN) 0-5 /HPF (0-5)
[2019-02-16 08:22] LABS: EPITHELIAL CELLS,URINE FEW /LPF
--- NOTE | 2019-02-16 08:39 | NUR ---
ORTHOPEDIC PROGRESS NOTE Patient seen & examined resting comfortably at bedside. Pain well controlled. No acute events overnight. VS 97.8 HR 108 RR 20 BP 127/77 O2 94% Right lower Leg - dressing clean, dry and intact Motor: + EHL, FHL, TA, G/S Sensation grossly intact Pulses + DP, Post tib Compartments soft Negative calf tenderness H/H 11.0/36.2 48 yo F s/p Right Hip IMN POD#2 Analgesics DVT Prophylaxis PT - WBAT Foam tape removed, Aquacel dressing in place. Patient is orthopedically stable for discharge Radiation/Chemo as per Heme/Onc & Medical Team Follow up in office in 2 weeks. As long as dressing remains clean, dry and intact, may remain on until follow up. DO [facility]
[2019-02-16] MEDS: DEXAMETHASONE SOD PHOS INJ 4 MG/ML VIAL IV SCH ×2 (09:01→17:22)
[2019-02-16] MEDS: LUBIPROSTONE 24 MCG CAP PO SCH ×2 (09:01→17:00)
[2019-02-16] MEDS: LEVETIRACETAM 500 MG TAB PO SCH ×2 (09:01→18:02)
--- NOTE | 2019-02-16 13:16 | NUR ---
r ac 18g infiltrated, r fa 20g x 1 stick tolerated well, reconnected to ivf and dike supervisor, call light in reach will continue to monitor
--- NOTE | 2019-02-16 14:45 | NUR ---
pt and family refused 2nd physical therapy session.
--- NOTE | 2019-02-16 16:02 | NUR ---
ATTEMPTED TO SPEAK WITH PT ABOUT SNF ORDER, ASLEEP AND UNABLE TO DISCUSS
--- NOTE | 2019-02-16 16:04 | NUR ---
OPERATIVE NOTE - ORTHOPEDICS PREOPERATIVE DIAGNOSIS: Right Hip Pathologic Subtrochanteric hip fracture. POSTOPERATIVE DIAGNOSIS: Right Hip Pathologic Subtrochanteric hip fracture. OPERATION PERFORMED: Right Hip Intramedullary Nailing with Flouroscopic Interpretation ESTIMATED BLOOD LOSS: Approximately 100 cc. DRAINS: None. ANESTHESIA GIVEN: General COMPLICATIONS: None. IMPLANTS: Srini Gamma 3 system Trochanteric Long Nail Kit 10 x 360 mm x 125 degree, 10.5 x 95 mm Lag Screw, 5 x 45 & 55 mm Locking Fully Threaded Screws INDICATIONS FOR PROCEDURE: The patient is a 48-year-old emale, who sustained a Right subtrochanteric pathologic hip fracture. She was admitted for a preoperative medical clearance and to be taken to the operating room for an intramedullary nailing of Right hip fracture. Consent is signed on the chart. All risks and benefits regarding the procedure were explained: Risks of , infection, nerve or blood vessel injury or bleeding, need for blood transfusion, blood clots, failure to heal, need for further surgery were all explained and consent was signed. DESCRIPTION OF OPERATIVE PROCEDURE: The patient was given Ancef 2 gram intravenously in the holding area. She with then taken to the operating room where general anesthetic was placed by the anesthesia service on the hospital bed. She was then transferred over to the fracture table in the supine position where a well-padded post was positioned. The Left lower extremity with a SCD was placed into the thigh/leg support with foam padding over all bony prominences. The Right lower extremity had abundant padding placed around the foot and ankle region and was then placed in the foot and ankle support. Next, the Right hip was visualized under AP and lateral fluoroscopic views. The femoral head and neck were well-visualized in both planes at this time. Next, the Right hip was prepped and draped in the usual sterile fashion utilizing Alcohol then Chloroprep followed by toweling out, followed by drying, followed by placement of a shower curtain. Next, a guidepin was placed over the hip and an AP fluoroscopic view taken to demarcate the height of the greater trochanter and a lateral to demarcate the direction of the femoral shaft. Next, the proposed skin incision of approximately 6 cm in length was marked on the skin. The skin incision was then made with a #10 blade, going down through the skin and subcutaneous tissue. The IT-band and hip abductors were split to the greater trochanter. A guide pin was inserted in adequate position which was confirmed on AP and lateral imaging. An opening reamer was placed over the guide wire and pushed down to the lesser trochanter. Serial reaming was performed to accomodate the nail. Of note, the lateral cortex was weakened by the tumor which caused lateral migration of the nail proximally despite a more medial entry point. The above mentioned nail was introduced into the canal. Next a guide wire was placed in preparation for the lag screw. The wire was visualized in proper AP and Lateral position. The guidewire was measured and the neck and head were reamed over the guidewire. The above mentioned lag Screw was placed in adequate position. The set screw was then placed. The distal screws was then focused on. Through perfect [employer] the holes for the distal screws were drilled and measured and introduced to lock the screw distally. The guides were then removed, final imaging was obtained demonstrating the hardware in adequate position. The incisions were closeddeep with vicryl and monocryl on the skin. The incisions were cleaned and dressed wit briseida Aquacel. The patient was then gently transferred back to the hospital bed and transferred to recovery without difficulty. DO [facility]
--- NOTE | 2019-02-16 16:19 | Progress Note ---
DATE: Internal Medicine Progress Note SUBJECTIVE: The patient is complaining of right hip pain, but little less than before. PHYSICAL EXAMINATION: VITAL SIGNS: Blood pressure 127/77, temperature 97.8, heart rate 108 per minute, respiratory rate 20 per minute oxygen saturation 94%. HEART: Showed regular rhythm. Normal S1, S2 sound. LUNGS: Clear bilaterally. LABORATORY DATA: BMP; sodium 138, potassium 4.1, chloride 100, CO2 24, BUN 25, creatinine 0.77, glucose 166. On the CBC, white count 11.2, hemoglobin 11.0, hematocrit 36.2, platelet count 304,000. PT 14.0, INR 1.03, PTT 38.8. AST is 12, ALT 11, total bilirubin 0.8, alkaline phosphatase 65. IMPRESSION: 1. Stage IV breast cancer with bone and brain metastasis. 2. Right hip fracture, which is a pathologic fracture status post surgical repair. PLAN OF TREATMENT: PT OT evaluation. Pain control. Continue Keppra 500 mg twice a day. Continue Amitiza 24 mcg p.o. twice a day, lactulose 20 g every 4 hours as needed, [place] 1 tablet q.4 hours as needed for severe pain, Dilaudid 2 mg IV every 3 hours as needed for severe pain, dexamethasone 4 mg twice a day, Lovenox 40 mg subcutaneously daily for DVT prophylaxis, Zofran 4 mg IV q.4 hours as needed, Tylenol 325 mg every 4 hours as needed. I discussed the case with the family yesterday and the patient about the very poor prognosis, which according to Dr. Cehn, oncologist, two months to live. Dr. Chen recommended hospice or palliative radiation therapy. Family is undecided yet. We are going to start physical and occupational therapy because the patient cannot walk, so we are going to do pain control, physical and occupational therapy until the family decides which option they are going to use either hospice or palliative radiation therapy. In anyway, the prognosis is very poor. The patient is aware of her diagnosis. MD CONNIE Trivedi/MIRANDA /[id number]
--- NOTE | 2019-02-16 17:15 | NUR ---
PT AND FAMILY REQUEST TO CHANGE ONCOLOGIST AT THIS TIME, DR. BURNETT AND DR. LARSEN NOTIFIED, NEW ORDERS TO CANCEL DR LARSEN AND CONSULT DR MCDANIEL. DR MCDANIEL NOTIFIED OF CONSULT
[2019-02-16] MEDS: ENOXAPARIN SOD INJ 40 MG/0.4 ML SYR SC SCH (17:22)
--- NOTE | 2019-02-16 19:09 | NUR ---
report given to oncoming warehouse shift supervisor RN, pt resting in bed, respirations even and nonlabored, family member at bedside, call light within reach
--- NOTE | 2019-02-16 21:30 | NUR ---
ASSISTED PATIENT TO HIP FX BEDPAN. PATIENT STATED SHE WILL CALL WHEN READY TO BE REMOVED FROM BEDPAN. CALL LIGHT WITHIN REACH. FAMILY MEMBERS AT BEDSIDE, AGREED TO ALERT NURSE OR AID WHEN FINISHED WITH BEDPAN.
[2019-02-17] VITALS (8 sets, daily range): BP systolic 124–146; BP diastolic 63–81
[2019-02-17] MEDS: HYDROMORPHONE 2MG/ML 2 MG/ML ML IV PRN ×6 (03:40→20:15)
--- NOTE | 2019-02-17 06:59 | NUR ---
received report from retail shift manager RN, pt resting in bed, no distress noted, respirations even and nonlabored, call light within reach, will continue to assess
[2019-02-17] MEDS: LUBIPROSTONE 24 MCG CAP PO SCH ×2 (09:00→16:52)
[2019-02-17] MEDS: DEXAMETHASONE SOD PHOS INJ 4 MG/ML VIAL IV SCH ×2 (10:00→16:52)
[2019-02-17] MEDS: LEVETIRACETAM 500 MG TAB PO SCH ×2 (10:00→16:53)
--- NOTE | 2019-02-17 14:40 | NUR ---
Dr. Villavicencio at bedside, informed pt of update on status and treatment plan, md suggest home with home health, states he will talk with attending as well re: treatment plane. spoke with Dr. Stone, covering for Dr. Bullard informed of Dr. Villavicencio wanting pt to go home with home health, states pt needs more physical therapy, and when pt can ambulate on own, then will proceed with further orders.
--- NOTE | 2019-02-17 16:26 | NUR ---
PT AND SISTER FIRED AND ASKED FOR ANOTHER ONE, JONAS CAME IN AND IS NOW SUGGESTING HOME HEALTH FOR PT TO BE ABLE TO GET TREATMENT IN COMMUNITY FOR HER CANCER. NURSE CALLED ATTENDING AND COVERING , STATS NOT TO PROCEED AT THIS TIME DUE TO PT NOT BEING READY AND NEEDING MORE THERAPY TO BE ABLE TO AMBULATE ON OWN PRIOR TO DISCHARGE, WILL PROCEED WHEN DIRECTED WITH RESOURCES AND REFERRALS FOR DISCHARGE .
[2019-02-17] MEDS: ENOXAPARIN SOD INJ 40 MG/0.4 ML SYR SC SCH (16:53)
[2019-02-17] MEDS: FENTANYL 50 MCG/HR PATCH TOP SCH (16:53)
--- NOTE | 2019-02-17 17:32 | NUR ---
Nutrition Screen Note RD Recommendation for Physician: 1.Continue with current diet order Plan of Care: Patient has been screened and assessed for nutrition risk. At this time, the patient does not pose any nutrition risk. No further nutrition intervention is warranted at this time. Will re-evaluate if consulted by medical staff. Nutrition reason for involvement: LOS Primary Diagnose(s): Hip fracture PMH: no significant PMH prior to admission. However pt was diagnosed with: 1. Hepatologic right hip fracture. 2. Right breast cancer with metastatic lesion. Ht: 65 in Wt: 172 lbs BMI: 28.61kg/m2 IBW: 125lb +/- 10% RD Assessment: (02/17) Chart reviewed. Labs and meds reviewed. 48 y/o F with newly diagnosed stage IV breast cancer. Visited patient in the room, daughter at bedside. Per pt and daughter denied any significant nutrition related concerns during time of visit. Report overall good appetite and intake during hospital admission and at home. Pt on regular diet, PTC showed consuming ~ 25-75% of meals. Denied any recent significant weight changes, N/V/D/C or difficulties with chewing/swallowing. Will continue to follow and monitor as needed . Current Diet: Regular Diet Malnutrition Evaluation (02/17) The patient does not meet criteria for a specified degree of malnutrition at this time. Will re-evaluate at follow-up as appropriate. Diet Education Needs Assessment: Diet education not indicated. Nutrition Care Level: LOW Signed: Eleanor Matthews, MS, RDN, LD
--- NOTE | 2019-02-17 19:07 | NUR ---
report given to oncoming mechanic general operational test RN, pt laying in bed in semi fowlers, awake, alert, no distress noted, call light within reach, in stable condition
--- NOTE | 2019-02-17 21:26 | Consultation ---
DATE OF CONSULTATION: 02/17/2019 REQUESTING PHYSICIAN: Trey Bullard MD. CONSULTING PHYSICIAN: Barbara Villavicencio MD, Hematology/Oncology Service. REASON FOR CONSULTATION: Evaluation and management of the patient with metastatic cancer, suspected of breast primary. HISTORY OF PRESENTING ILLNESS: Ms. Bowens is a very pleasant 48-year-old Serbian-speaking female with no significant past medical history, presented initially after having a fall causing right hip pain. She underwent workup revealing right proximal femur fracture along with lucent lesion in the greater trochanter concerning for metastatic disease. Bone scan was performed confirming acute osteoblastic process in the intertrochanteric right femur as well as 2 other small osteoblastic lesion in the T6 and 10 as well as left 9th rib, concerning for bony metastatic disease. CT chest demonstrated extensive soft tissue mass involving the right breast with most dominant lesion measuring 4.9 x 3.5 cm in the right lateral right breast, associated with lymphadenopathy in the right supraclavicular and subpectoral region. The patient also underwent further workup including an MRI of the brain confirming 3 supratentorial enhancing masses for metastatic disease with surrounding edema. The patient has been started on dexamethasone due to metastatic brain disease. Due to the fracture, underwent right hip intramedullary nailing. Now, Hematology/Oncology has been consulted to assist with the management. Presently, the patient lying comfortably, not in acute distress, breathing normally. Her daughter is at bedside. PAST MEDICAL HISTORY: None other than recent diagnosis of metastatic breast cancer as mentioned above. SOCIAL HISTORY: Denies history of smoking, alcohol use, or illicit drug use. FAMILY HISTORY: Noncontributory. ALLERGIES: NO KNOWN DRUG ALLERGIES. CURRENT MEDICATIONS: Reviewed per electronic medical record. REVIEW OF SYSTEMS: A 14-point review of systems negative except as mentioned per history of present illness as well as fatigue, tiredness, and not feeling well. She is also having pain and difficulty walking. PHYSICAL EXAMINATION: VITAL SIGNS: Reviewed as per current medical record. HEENT: PERRLA. Extraocular movements are intact. Head is atraumatic and normocephalic. NECK: Supple. CVS: S1 and S2 audible. RESPIRATORY: Decreased bilateral air entry. ABDOMEN: Soft. Positive bowel sounds. EXTREMITIES: Negative cyanosis. NEURO: The patient is alert and awake. LABORATORY DATA: White blood cell count of 11.2, hemoglobin 10.9, hematocrit 36.6, and platelet 304. BUN 25 and creatinine 0.7. ASSESSMENT AND PLAN: Ms. Bowens is a very pleasant 48-year-old young female with no significant past medical history, presented initially with fall and fracture of the right hip. She underwent a workup including a CT of the pelvis revealing pathological fracture of the proximal right femur with lucent lesion in the greater trochanter. A bone scan as well as CT chest was performed, confirming widely metastatic disease involving the bones at T6, T10, 9th rib, and pelvis. CT chest revealed large 4.9 cm mass in the right breast along with extensive soft tissue masses as well as supraclavicular and subpectoral lymphadenopathy suspected of metastatic breast cancer. MRI of the brain was also performed revealing metastatic grade disease. The patient has been started on dexamethasone. For the fracture, she underwent repair by Orthopedic Surgery. Now, Hematology/Oncology has been consulted to assist with the management. Reviewed the case in detail with the patient as well as daughter about her condition, importance of treatment. Her options at this point are either procedure followed with the best supportive care and hospice versus treatment for the underlying metastatic cancer, which include radiation treatment to the brain lesion and systemic therapy to the metastatic disease elsewhere. She is young and no other medical issues previously and does not want to proceed with hospice or no treatment. She rather would like to go home and start radiation treatment to the brain lesion. I think that is appropriate at least at this point for the patient to go home, think about it and then if she is willing to proceed with the radiation, then that can be scheduled outpatient. If in case, she would like to have supportive care or hospice, that can also be arranged in outpatient setting. For now, goal would be to continue with the dexamethasone for this cerebral edema and physical therapy for the mobility as well as continue supportive care including pain management and symptom management. Thank you for the consult. I will continue to be available. Please call with question. MD ALETHA Hanna/MODL /[id number]
[2019-02-17] MEDS: HYDROCODONE/APAP 10MG-325MG TAB PO PRN (22:17)
[2019-02-18] VITALS (8 sets, daily range): BP systolic 119–148; BP diastolic 72–83
[2019-02-18] MEDS: HYDROMORPHONE 2MG/ML 2 MG/ML ML IV PRN ×6 (00:31→22:16)
--- NOTE | 2019-02-18 07:00 | NUR ---
bedside shift report received pt in stable condition, denies pain at this time, r fa 20g no ss of infiltration noted, updated on poc voiced understanding, denies pain at this time, call light in reach will continue to monitor
[2019-02-18] MEDS: LEVETIRACETAM 500 MG TAB PO SCH ×2 (09:00→17:36)
[2019-02-18] MEDS: DEXAMETHASONE SOD PHOS INJ 4 MG/ML VIAL IV SCH ×2 (09:00→17:36)
[2019-02-18] MEDS: LUBIPROSTONE 24 MCG CAP PO SCH ×2 (09:00→17:36)
[2019-02-18] MEDS: HYDROCODONE/APAP 10MG-325MG TAB PO PRN ×2 (09:12→13:55)
[2019-02-18] MEDS: ENOXAPARIN SOD INJ 40 MG/0.4 ML SYR SC SCH (17:36)
[2019-02-19] VITALS (9 sets, daily range): BP systolic 125–137; BP diastolic 71–90
[2019-02-19] MEDS: HYDROMORPHONE 2MG/ML 2 MG/ML ML IV PRN ×4 (02:15→22:38)
--- NOTE | 2019-02-19 07:03 | NUR ---
RECEIVED PATIENT RESTING IN BED NO SIGNS OF DISTRESS. DAUGHTER AT BEDSIDE. BED LOW, WHEELS LOCKED, SIDE RAILS X2. CALL LIGHT IN REACH WILL CONTINUE TO MONITOR PATIENT.
[2019-02-19] MEDS: LUBIPROSTONE 24 MCG CAP PO SCH ×2 (08:06→17:00)
[2019-02-19] MEDS: LEVETIRACETAM 500 MG TAB PO SCH ×2 (08:15→17:05)
[2019-02-19] MEDS: DEXAMETHASONE SOD PHOS INJ 4 MG/ML VIAL IV SCH ×2 (08:15→17:05)
[2019-02-19] MEDS: HYDROCODONE/APAP 10MG-325MG TAB PO PRN ×2 (12:42→17:05)
[2019-02-19] MEDS: ENOXAPARIN SOD INJ 40 MG/0.4 ML SYR SC SCH (17:05)
--- NOTE | 2019-02-19 17:30 | Progress Note ---
DATE: Internal Medicine Progress Note SUBJECTIVE: The patient is undergoing physical therapy. She wants to go home with physical therapy at home. Dr. Villavicencio, Hematology/Oncology is going to go for palliative radiation therapy since the patient has a stage IV breast cancer. The patient also will be transferred to Dr. Fidel Stone because of the fact that she speaks Indonesian and she feels more comfortable with someone who speaks Indonesian, so going to transfer the case to his service and I am going to inform him about the medical condition and he will observe the patient over the weekend. PHYSICAL EXAMINATION: VITAL SIGNS: Blood pressure 134/71, temperature 97.0, heart rate 80 per minute, respiratory rate 20 per minute, oxygen saturation 94%. HEART: Showed regular rhythm. Normal S1, S2 sounds. LUNGS: Clear bilaterally. LABORATORY DATA: On the BMP; sodium 138, potassium 4.1, chloride 100, CO2 of 24, BUN 25, creatinine 0.77, glucose 166. On CBC; white blood count 11.2, hemoglobin 11.0, hematocrit 33.2, platelet count 304,000, PT 14.0, INR 1.03, PTT 33.8. AST 12, ALT 11, total bilirubin 0.8, alkaline phosphatase 65 and 75. FINAL IMPRESSION: 1. Right hip fracture, which is a pathological fracture status post hip fracture repair. 2. Mild anemia. 3. Breast cancer with metastatic lesions in the bones and the brain. PLAN OF TREATMENT: The patient is going home with home health. We are going to switch the patient's care to Bertha, who is going to follow the patient as an outpatient at the patient's request. Going to continue to follow with Dr. Villavicencio, Oncology for the palliative radiation therapy. Prognosis is very poor due to stage IV breast cancer. Tentative discharge tomorrow. MD CONNIE Trivedi/MIRANDA /[id number]
--- NOTE | 2019-02-19 19:14 | NUR ---
Bedside rounding completed with DULCE Smith. Patient resting in bed at this time with family present at bedside. Call light is in reach, will continue to monitor patient.
[2019-02-20 04:00] VITALS: BP 128/75
--- NOTE | 2019-02-20 07:01 | NUR ---
RECEIVED PATIENT RESTING IN BED NO S/S OF DISTRESS. BED LOW, WHEELS LOCKED, SIDE RAILS X2. CALL LIGHT IN REACH WILL CONTINUE TO MONITOR PATIENT.
[2019-02-20 07:59] VITALS: BP 113/71
[2019-02-20] MEDS: HYDROMORPHONE 2MG/ML 2 MG/ML ML IV PRN ×2 (08:18→11:53)
[2019-02-20] MEDS: DEXAMETHASONE SOD PHOS INJ 4 MG/ML VIAL IV SCH ×2 (08:18→16:34)
[2019-02-20] MEDS: LEVETIRACETAM 500 MG TAB PO SCH ×2 (08:18→16:34)
[2019-02-20] MEDS: LUBIPROSTONE 24 MCG CAP PO SCH ×2 (08:18→16:14)
[2019-02-20 09:21] VITALS: BP 113/71
--- NOTE | 2019-02-20 10:15 | NUR ---
PATIENT A/O X3, EVEN RESPIRATIONS ON RA. LUNG SOUNDS CLEAR TO AUSCULTATION. RIGHT HIP/THIGH DRESSING CLEAN, DRY, AND INTACT. IV SITE TO RIGHT WRIST INTACT AND PATENT. PRN PAIN MEDICATION. VITAL SIGNS STABLE. PATIENT WORKING WITH PT. VOIDS IN BEDPAN. FAMILY AT BEDSIDE, CALL LIGHT IN REACH WILL CONTINUE TO MONITOR PATIENT.
[2019-02-20] MEDS ORDERED: ONDANSETRON HCL 4 MG ORAL DISINTEGRATING TAB PO PRN (10:30)
[2019-02-20 12:15] VITALS: BP 119/77
--- NOTE | 2019-02-20 12:59 | NUR ---
ORDERS REC'D FOR HOME HEALTH CARE CHOICE LETTER SIGNED FOR [facility] COPY OF LETTER TO PT AND ORIGINAL ON CHART PT'S BROTHER IS BUYING HER A WHEELCHAIR TODAY FOR TRANSPORTATION PT'S DTR [facility]IL[facility] IS CALLING DR HARRIS'S OFFICE TODAY WITH THEIR PHARMACY NUMBER SO THAT HE CAN SENT NARCOTIC RX OVER TO BE FILLED PT AND DTR EAGER TO GO HOME CONFIRMED PT'S ADDRESS (GOING HOME WITH DTR SIL[place]IA) WITH PT
--- NOTE | 2019-02-20 13:01 | NUR ---
HOME HEALTH DISCHARGE NOTE PATIENT ADDRESS WHERE SERVICE WILL BE RECEIVED[id number] [place] [address] [address] PATIENT CONTACT NUMBER: [phone] NAME OF [facility]: [facility] [employer] TELEPHONE/FAX NUMBER OF [facility] [phone] ADDRESS OF [employer]: [address] [place] [id number] SERVICES TO RECEIVE: SKILLED NURSE PT/OT EVAL AND TREAT HOME SAFETY EVAL ANTICIPATED DATE SERVICES WILL BEGIN: 02/21 OR 02/22 PLEASE CALL THE COMPANY ABOVE IF YOU HAVE NOT RECEIVED A CALL TO SCHEDULE A HOME VISIT WITHIN 24 HRS OF DISCHARGE
[2019-02-20] MEDS ORDERED: HYDROMORPHONE 2MG/ML 2 MG/ML ML IV ONE (15:15)
[2019-02-20 16:01] VITALS: BP 114/64
[2019-02-20] MEDS: ENOXAPARIN SOD INJ 40 MG/0.4 ML SYR SC SCH (16:34)
[2019-02-20] MEDS: FENTANYL 50 MCG/HR PATCH TOP SCH (16:35)
--- NOTE | 2019-02-20 18:43 | NUR ---
PATIENT AND FAMILY INSISTING PATIENT SHOWER. TOLD PATIENT IT MAY NOT BE SAFE DUE TO HER NEEDING MAX ASSIST WITH TRANSFERS. PATIENT AND FAMILY STILL WANTED TO SHOWER PATIENT. PATIENT ASSISTED TO SHOWER WITH GAIT BELT AND PLACED ONTO BEDSIDE COMMODE IN SHOWER FOR FAMILY TO BATHE PATIENT.
--- NOTE | 2019-02-20 19:40 | NUR ---
Patient leaving unit by wheelchair with Niki MCLEAN at this time. Pt IV removed without complication. Patient and family gathered all belongings. Pt and family educated on discharge instructions and follow up appointments. Prescription given to patient and copy made for chart. Patient and family has no others questions .
== END 2019-02-20 19:40 | disposition home or self-care (01) | DRG 480 ==
LOC: ER 00:43 → ERHOLD 03:32 → MED/SURG 22:15
PROC: 0QH634Z Insertion of Internal Fixation Device into Right Upper Femur, Percutaneous Approach (ICD-10-PCS; principal; 2019-02-12)
PROC: 0HBT3ZX Excision of Right Breast, Percutaneous Approach, Diagnostic (ICD-10-PCS; 2019-02-12)
DX: M84.551A Pathological fracture in neoplastic disease, right femur, initial encounter for fracture (principal); G93.6 Cerebral edema; C79.31 Secondary malignant neoplasm of brain; C79.51 Secondary malignant neoplasm of bone; C77.9 Secondary and unspecified malignant neoplasm of lymph node, unspecified; C50.911 Malignant neoplasm of unspecified site of right female breast; E66.01 Morbid (severe) obesity due to excess calories; Z68.28 Body mass index [BMI] 28.0-28.9, adult; D64.9 Anemia, unspecified; G89.3 Neoplasm related pain (acute) (chronic)
CPT/HCPCS: 36415; 70553; 71260; 72192; 74177; 78306; 80048; 80053; 81001; 82378; 82784; 82948; 84702; 85014; 85018; 85025; 85610; 85730; 86850; 86870; 86880; 86900; 86905; 88305; 88307; 88342; 93005; 96376; 97139; 99001; 99284; A9503; C1713; J0690; J1100; J1170; J1650; J2001; J2250; J2270; J2405; J3010; Q9967

== ENCOUNTER 2021-06-12 01:04 | Emergency (ER) | payer OTHER ==
[~2021-06-12] VITALS: Ht 165.1 cm; Wt 78.0 kg
[~2021-06-12 01:04] MED LIST: ATORVASTATIN CA20 MG PO; KEPPRA500 MG PO; TAMOXIFEN CITRA10 MG PO
[2021-06-12] MEDS ORDERED: HYDROMORPHONE 1MG/1ML INJ IM STA (01:26)
[2021-06-12] MEDS ORDERED: ONDANSETRON ODT4 MG PO (01:29)
[2021-06-12] MEDS ORDERED: HYDROCODON-ACE1 EAC9 PO (01:29)
[2021-06-12] MEDS ORDERED: ONDANSETRON HCL 4 MG ORAL DISINTEGRATING TAB PO ONE (01:30)
[2021-06-12] MEDS ORDERED: ONDANSETRON HCL 4 MG ORAL DISINTEGRATING TAB ONE (01:35)
[2021-06-12] MEDS ORDERED: HYDROMORPHONE 1MG/1ML INJ ONE (01:36)
[2021-06-12] MEDS ORDERED: HYDRALAZINE HCL 25 MG TAB PO ONE (03:30)
== END 2021-06-12 02:31 | disposition home or self-care (01) ==
LOC: ER 01:28
DX: N64.4 Mastodynia (principal); C50.811 Malignant neoplasm of overlapping sites of right female breast; E78.5 Hyperlipidemia, unspecified; E66.01 Morbid (severe) obesity due to excess calories
CPT/HCPCS: 99282; J1170; Q0162